=== PATIENT | female | born 1945 | race Caucasian/White ===

== ENCOUNTER → 2022-09-12 07:52 | Outpatient (CLI) | payer MEDICARE, SELFPAY ==
--- NOTE | 2022-09-12 | DI.MRI.S_ITS ---
PROCEDURE: MR LUMBAR SPINE WO CON INDICATIONS: OSTEOPENIA LUMBAR SPINE/SCIATICA/DDD TECHNIQUE: Noncontrast sagittal T1 spin echo and T2 fast echo, sagittal STIR, and T2 fast spin echo through the lumbar spine. In cases with scoliosis, additional coronal T2 fast spin echo may be performed. COMPARISON: [facility], , L-SPINE 2-3 VIEWS, 01/23/2012, 13:45. FINDINGS: Image quality: Excellent. Alignment and Curvature: There is probably S shaped thoracolumbar scoliotic curvature, mild in the lumbar region. There is mild rightward displacement of L3 on L4 measuring approximately 8 mm. Bone Marrow: Marrow is of normal overall signal. No acute vertebral body compression fractures. Spinal Cord: Conus medullaris terminates at the L2 level. Visualized cord demonstrates normal signal and size. Paraspinous Soft Tissues: No paravertebral masses. T12-L1: Disc bulge. No canal stenosis or foraminal stenosis. L1-L2: Minimal disc bulge. No canal stenosis or foraminal stenosis. L2-L3: Disc bulge. No canal stenosis or foraminal stenosis. L3-L4: Disc bulge. Facet hypertrophy. Mild narrowing of the right side of the canal. No foraminal stenosis. L4-L5: There is right foraminal disc extrusion with results in severe foraminal narrowing and right foraminal L4 nerve root impingement. There is right paracentral disc protrusion with a degree of impingement of the right L5 nerve root in the right lateral recess. There is no significant central canal stenosis. There is prominent bilateral facet arthropathy. L5-S1: Disc bulge. Prominent facet arthropathy. No canal stenosis. Mild right foraminal stenosis. IMPRESSION: 1. Multilevel facet arthropathy. 2. Mild scoliotic curvature. 3. At L4-L5, a right foraminal disc extrusion results in severe right foraminal narrowing and right foraminal L4 nerve root impingement. There is also a right paracentral disc protrusion with a degree of impingement of the right L5 nerve root in the right lateral recess. Dictated by: José Ramirez M.D. on 09/12/2022 at 9:00 Approved by: José Ramirez M.D. on 09/12/2022 at 9:07
== END ==
PROVIDERS: PCP Family Medicine; Referring Provider Family Medicine; Visit Provider Family Medicine
DX: M51.16 Intervertebral disc disorders with radiculopathy, lumbar region (principal); M51.17 Intervertebral disc disorders with radiculopathy, lumbosacral region; M47.26 Other spondylosis with radiculopathy, lumbar region; M47.16 Other spondylosis with myelopathy, lumbar region; M47.27 Other spondylosis with radiculopathy, lumbosacral region; M48.061 Spinal stenosis, lumbar region without neurogenic claudication; M48.07 Spinal stenosis, lumbosacral region; M54.50 Low back pain, unspecified; M85.88 Other specified disorders of bone density and structure, other site; M41.26 Other idiopathic scoliosis, lumbar region
CPT/HCPCS: 72148

== ENCOUNTER → 2024-04-01 07:46 | Outpatient (CLI) | payer MEDICARE, SELFPAY ==
--- NOTE | 2024-04-01 07:49 | DI.RAD.S_ITS ---
PROCEDURE: XR DEXA AXIAL SKELETON INDICATIONS: [facility], 02[facility]08[facility]2014, 13:02. FINDINGS: Lumbar Spine: Bone mineral density 0.693 g/cm2, T score -3.1. Left Hip: Bone mineral density 0.712 g/cm2, T score -1.9. Left Femoral Neck: Bone mineral density is 0.633 g/cm2, T score -1.9. Right Hip: Bone mineral density is 0.681 g/cm2, T score -2.1. Right Femoral Neck: Bone mineral density 0.575 g/cm2, T score -2.5. Fracture Risk Calculation (when applicable): 10-year fracture risk of a major osteoporotic fracture and hip fracture were not calculated secondary to osteoporosis. (T score greater or equal to -1.0 to: NORMAL) (T score from -1.1 to -2.4: OSTEOPENIA) (T score less than or equal to -2.5: OSTEOPOROSIS) IMPRESSION: Osteoporosis Follow-up guidelines as follows: Osteoporosis: Consider a repeat DEXA and Vertebral Fracture Assessment (VFA) exam in 2 years or sooner if medically necessary, to reassess this patient's status. Osteopenia: Consider a repeat DEXA in 2-3 years to reassess this patient's status, or if there is a new clinical indication. Normal: Consider a repeat DEXA in 5 years or sooner, or if there is a new clinical indication. All treatment decisions require clinical judgment and consideration of individual patient factors, including patient preferences, comorbidities, previous drug use, risk factors not captured in the FRAX model (e.g., frailty, falls, vitamin D deficiency, increased bone turnover, interval significant decline in bone density ) and possible under- or over-estimation of fracture risk by FRAX. In addition, the NOF Guide recommends that FDA-approved medical therapies be considered in postmenopausal women and men age >= 50 years with a: * Hip or vertebral (clinical or morphometric) fracture * T-score of <=-2.5 at the spine or hip * Ten-year fracture probability by FRAX of >= 3% for hip fracture or >=20% for major osteoporotic fracture. People with diagnosed cases of osteoporosis or at high risk for fracture should have regular bone mineral density tests. For patients eligible for Medicare, routine testing is allowed once every 2 years. The testing frequency can be increased to one year for patients who have rapidly progressing disease, those who are receiving or discontinuing medical therapy to restore bone mass, or have additional risk factors. Dictated by: Charli Gan M.D. on 04/01/2024 at 11:17 Approved by: Charli Gan M.D. on 04/01/2024 at 11:24
--- NOTE | 2024-04-01 07:49 | DI.US.S_ITS ---
PROCEDURE: US ABDOMEN COMPLETE INDICATIONS: LOWER ABDOMINAL PAIN TECHNIQUE: Real-time scanning was performed of the abdominal and retroperitoneal organs, with image documentation. COMPARISON: None. FINDINGS: Liver: Liver is normal in size and homogeneous in echotexture. Gallbladder: No findings of gallstones or sludge are seen. The gallbladder wall is not thickened, measuring 3 mm or less. No specific pericholecystic fluid is seen. The sonographic Abad sign is negative. Biliary ducts: Intrahepatic bile ducts are non-dilated. Extrahepatic bile duct caliber measures 6 mm. Normal is 6-7 mm or less in diameter, or 10 mm or less post-cholecystectomy. Pancreas: Visualized portions of the pancreas are sonographically normal. Spleen: Spleen is normal in size and homogeneous in echotexture. Kidneys: Kidneys are normal in size and echotexture. Right kidney measures 10 point cm long; left kidney measures 10.5 cm long. No hydronephrosis or nephrolithiasis. No solid masses. Aorta: Visualized aorta is normal in caliber at less than 3 cm. Iliacs: Proximal common iliac arteries are normal in caliber at less than 2.5 cm. IVC: Intrahepatic inferior vena cava is patent. Miscellaneous: No free abdominal fluid. IMPRESSION: No imaging explanation is found for this patient's presenting symptoms. The gallbladder demonstrates a normal sonographic appearance. No biliary dilatation is seen. Dictated by: Jaret Aguirre M.D. on 04/01/2024 at 10:49 Approved by: Jaret Aguirre M.D. on 04/01/2024 at 10:49
== END ==
LOC: US 07:47
PROVIDERS: PCP Family Medicine; Referring Provider Physician Assistant; Visit Provider Physician Assistant
DX: M81.0 Age-related osteoporosis without current pathological fracture (principal); Z78.0 Asymptomatic menopausal state; R10.30 Lower abdominal pain, unspecified
CPT/HCPCS: 76700; 77080

== ENCOUNTER → 2024-08-16 08:18 | Outpatient (CLI) | payer MEDICARE, SELFPAY ==
--- NOTE | 2024-08-16 08:19 | DI.US.S_ITS ---
PROCEDURE: US PELVIC COMPLETE INDICATIONS: CYSTS OF BOTH OVARIES TECHNIQUE: Real-time scanning was performed of the pelvic organs, with image documentation. Additional endovaginal scanning was necessary due to incomplete visualization of the adnexal and endometrial structures by transabdominal scanning. COMPARISON: None. FINDINGS: Uterus: Uterus is anteverted and normal in size at 5.1 x 2.2 x 4.2 cm. The myometrium is heterogeneous. The endometrium measures 2.7 mm combined thickness. Mid anterior lower uterine segment intramural fibroid measuring 1.5 x 1.2 x 1.4 centimeters. Mid anterior intramural fibroid measuring 1.1 x 0.6 x 0.7 centimeters. Ovaries: The right ovary measures 3.0 x 2.9 x 2.4 cm, with a calculated ovarian volume of 10.7 cc. Septated cyst measuring 2.2 x 2.2 x 2.5 centimeters. The left ovary is not seen. Left adnexal cyst measuring 1.9 x 2.2 x 1.7 centimeters. Other: No pathologic free abdominal or pelvic fluid. IMPRESSION: Right ovarian septated cyst measuring 2.5 centimeters. The left ovary isn't seen. Left adnexal cyst measuring 2.2 centimeters. Recommend follow-up ultrasound in 6-12 weeks to assess stability. Uterine fibroids measuring up to 1.5 centimeters, as above. We strive to produce accurate, complete, and clear reports of imaging services. To assist us in improving patient care, this report was composed using standard report templates and voice recognition software. Therefore, it may contain abnormal punctuation, insertions and/or omissions. Occasional wrong-word or sound-alike substitutions may occur. Though we review the report and make efforts to correct it, we do recommend that the report be read carefully in proper context to recognize any text inaccuracies. Dictated by: Amaury Longoria M.D. on 08/16/2024 at 9:45 Approved by: Amaury Longoria M.D. on 08/16/2024 at 9:47
== END ==
PROVIDERS: PCP Family Medicine; Referring Provider Physician Assistant; Visit Provider Physician Assistant
DX: N83.201 Unspecified ovarian cyst, right side (principal); N83.202 Unspecified ovarian cyst, left side; D25.1 Intramural leiomyoma of uterus; N94.89 Other specified conditions associated with female genital organs and menstrual cycle
CPT/HCPCS: 76830; 76856

== ENCOUNTER → 2024-10-11 08:09 | Outpatient (CLI) | payer MEDICARE, SELFPAY ==
--- NOTE | 2024-10-11 08:10 | DI.US.S_ITS ---
PROCEDURE: US PELVIC COMPLETE INDICATIONS: CYSTS OF BOTH OVARIES TECHNIQUE: Real-time scanning was performed of the pelvic organs, with image documentation. Additional endovaginal scanning was necessary due to incomplete visualization of the adnexal and endometrial structures by transabdominal scanning. COMPARISON: [facility], , US PELVIC COMPLETE, 08/16/2024, 8:32. FINDINGS: Uterus: Uterus is anteverted and normal in size at 6.3 cm. The myometrium is homogeneous. The endometrium measures 3 mm combined thickness. A subserosal fibroid measuring up to 1.2 cm is seen at the lower uterine segment. Ovaries: The right ovary is not seen. A right adnexal simple appearing cyst measures 2.9 x 2.2 x 2.9 cm. The left ovary is not seen. A left adnexal simple appearing cyst measures 2.3 x 2.3 x 2 cm. No adnexal masses are seen. Other: No pathologic free abdominal or pelvic fluid. The urinary bladder appears normal. IMPRESSION: Bilateral adnexal cysts measuring up to 2.9 cm on the right and 2.3 cm on the left. No additional follow-up needed. There is a 1.2 cm subserosal fibroid in the lower uterine segment. Dictated by: Carlitos Baltazar M.D. on 10/11/2024 at 14:55 Approved by: Carlitos Baltazar M.D. on 10/11/2024 at 15:04
== END ==
PROVIDERS: PCP Family Medicine; Referring Provider Physician Assistant; Visit Provider Physician Assistant
DX: N83.201 Unspecified ovarian cyst, right side (principal); N83.202 Unspecified ovarian cyst, left side; D25.2 Subserosal leiomyoma of uterus
CPT/HCPCS: 76856